=== PATIENT | male | born 1990 | race Two or more races ===

== ENCOUNTER 2022-12-25 13:38 | Emergency (ER) | payer BC, OTHER ==
[~2022-12-25] VITALS: Ht 182.9 cm; Wt 145.1 kg
--- NOTE | 2022-12-25 14:00 | NUR ---
BIBS C/O "Been Having a lot of stress right now/problems sleeping today palpitation". AMBULATORY, PLACED IN BED, AAOX4, BREATHING EVEN AND UNLABORED SATURATING AT 97%RA, ATTACHED TO MONITOR SHOWS NORMAL SINUS RHYTHM WA- 63.
--- NOTE | 2022-12-25 14:10 | NUR ---
AT BEDSIDE FOR EVAL.
[2022-12-25] MEDS ORDERED: CHLO25CA22 PO (15:04)
--- NOTE | 2022-12-25 15:08 | NUR ---
Patient discharged to home in stable condition. Written and verbal after care instructions given. Patient verbalizes understanding of instruction.
[2022-12-25 15:15] VITALS: BP 135/79
== END 2022-12-25 15:08 | disposition home or self-care (01) ==
LOC: ER 13:47
DX: G47.00 Insomnia, unspecified (principal); F10.20 Alcohol dependence, uncomplicated; Y90.9 Presence of alcohol in blood, level not specified